=== PATIENT | male | born 1945 | race Caucasian/White ===

== ENCOUNTER 2017-03-03 16:08 | Observation (INO) | payer MEDICARE, OTHER ==
[~2017-03-03] VITALS: Ht 180.3 cm; Wt 77.6 kg
[2017-03-03 16:09] VITALS: BP 158/72
[2017-03-03 16:56] LABS: LYMPH % 4.9 % (10-50)
[2017-03-03 17:05] LABS: BUN 38 mg/dL (7-18)
[2017-03-03 17:08] LABS: GFR (ESTIMATED) 60 ML/MIN (>60)
[2017-03-03 17:26] LABS: NEUTROPHILS 91 % (42-76)
--- NOTE | 2017-03-03 17:29 | Emergency Room Report ---
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 N Clinical Suspician of Infection? N Mental Status: 1 - Regular (Normal Baseline) Sepsis Risk:Low Sepsis Risk Have you (or family members/close friends) recently traveled outside the [place]? N If Yes, where/when: Have you had exposure to infectious disease within the past month? N TB? Other? Specify: Patient states she's had chest tightness on and off for the past several days to a week he states she's been having some shortness of breath on exertion today he states today at [facility] he had a near syncopal event got very lightheaded felt like he may pass out was diaphoretic he states he felt short of breath he states that he didn't really know if he had chest discomfort are not but that he was very discussed lightheaded at that time and near syncopal. He also states that he's been having heart palpitations and fluttering on and off over the past several days. He denies any chest discomfort currently when he has his chest discomfort it's in the LEFT side of the chest moderate no radiation. No fever chills or cough ALLERGIES Coded Allergies: No Known Allergies (03/03/17) History Medical History General CAD? No Angina: No [place]: No Hypertension? Yes Hyperlipidemia? Yes CHF? No DVT? No PE? No COPD? No Asthma? No Anemia? No GERD? No Gastric ulcers? No GI Bleed? No Hernia? Yes Thyroid Problems? No Hypothyroidism? No CVA? No Seizures? No Diabetes? No Renal Insuffiency? No End Stage Renal Disease? No UTI? No Stones? No BPH? No GB Disease: No Nephritic Syndrome? No Asplenia? No Hepatitis? No Sickle Cell Disease? No Arthritis? No Migraines? No Cataracts? No Glaucoma? No MRSA? No HIV? No TB? No Anxiety? No Depression? No Cancer? No More? No Immunization Hx DT/Tetanus 5-10 YRS Flu LAST YEAR Pneumonia 1-4 YRS Surgical Hx Previous Surgery?Y DOUBLE HERNIA TONSIL VASCECTOMY LESION R EAR Family History Family Hx Diabetes Yes CAD Yes Hypertension Yes Hyperlipidemia Yes Cancer No TB No Social History Smoking Hx Smoker: Never Smoker Tobacco: No Alcohol Alcohol: No Review of Systems All Other Systems Reviewed and Negative Physical Exam Vital Signs Vital Signs Date Time Temp Pulse Resp B/P Pulse O2 O2 Flow FiO2 Ox Delivery Rate 03/03 1828 64 16 162/72 95 03/03 1740 74 16 158/71 98 03/03 1701 73 16 147/59 98 03/03 1609 98.6 66 16 158/72 98 General Appearance: Nontoxic Head: Normocephalic, without obvious abnormality, atraumatic. Eyes: conjunctiva/corneas clear ENT: Mucous membranes moist. Neck: No jugular venous distention. Cardiac: regular rate and rhythm Lungs: Clear to auscultation bilaterally Abdomen: Nontender, Nondistended, positive bowel sounds, no rebound : No CVA tenderness Extremities: no edema Musculoskeletal: No chest wall tenderness No Homans sign No calf tenderness No swelling in legs Skin: No rashes or lesions to exposed skin. Neurologic: Alert. Alert and oriented x3 Cranial nerves intact Strength 5 out of 5 Sensation intact to light touch Psychiatric: Normal affect (Osman SINGER, Marvin) General Appearance normal appearance Respiratory Status No: respiratory distress. Cardiovascular normal exam Neurologic alert Medical Decision Making LABS/Meds/Orders Pt receiving controlled substance in ED? No Results/Orders Laboratory Tests 03/03/17 1418: Sodium 138, Potassium 4.3, Chloride 101, Carbon Dioxide 26, BUN 38 H, Creatinine 1.2, Estimated Creat Clear 60, Estimated GFR (MDRD) 60, Glucose 141 H, Calcium 9.0, Total Bilirubin 0.8, AST 27, ALT 28, Alkaline Phosphatase 64, Creatine Kinase 244, CK-MB (CK-2) Rel Index 0.8, CK and CKMB Interp 1.9, Troponin I < 0.02, Total Protein 6.9, Albumin 3.8, Globulin 3.1, Albumin/ Globulin Ratio 1.2, WBC 20.5 *H, RBC 4.13 L, Hgb 14.0 L, Hct 40.8 L, MCV 98.9 H, RDW 13.5, Plt Count 280, MPV 6.4 L, Gran % 91.6 H, Gran # 18.8 H, Total Counted 100, Lymphocytes % 4.9 L, Monocytes % 2.9, Eosinophils % 0.5, Basophils % 0.0 L, Neutrophils 91 H, Lymphocytes (Manual) 9 L, Lymphocytes # 1.0, Monocytes # 0.6, Eosinophils # 0.1, Basophils # 0.0, RBC/WBC/PLT Morphology NORMAL, Platelet Estimate NORMAL, PUBS MCHC 34.3, MCH 33.9 H Current Medication Orders Sig/Sherry Start time Last Medication Dose Route Stop Time Status Admin Multi-Ingredient GI 60 ML ONCE ONE 03/03 1715 DC 03/03 Drug PO 03/03 1716 1710 Multi-Ingredient GI 0 .STK-MED ONE 03/03 1704 DC Drug PO Sodium Chloride 10 ML PRN PRN 03/03 1615 AC IV 03/04 1613 Orders Procedure Date/time Status DIET-NOTHING BY MOUTH 03/03 D Active ELECTROCARDIOGRAM REQUEST 03/[address] HEAD REQ 03/03 161 Complete CHEST(2 VIEWS-NOT PORTABLE) 03/03 161 Active IV SALINE LOCK 03/03 161 Active CBC WITH AUTO DIFF 03/03 161 Complete CARDIAC ENZYMES 03/03 1613 Complete CHEM 12 PROFILE 03/03 1613 Complete DIFFERENTIAL-WBC 03/03 1418 Complete 12 LEAD EKG-BESSON (INITIAL) 03/[address] HEAD W/O CONTRAST 03/03 UNK 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
--- NOTE | 2017-03-03 17:29 | Emergency Room Report ---
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 N Clinical Suspician of Infection? N Mental Status: 1 - Regular (Normal Baseline) Sepsis Risk:Low Sepsis Risk Have you (or family members/close friends) recently traveled outside the [place]? N If Yes, where/when: Have you had exposure to infectious disease within the past month? N TB? Other? Specify: Patient states she's had chest tightness on and off for the past several days to a week he states she's been having some shortness of breath on exertion today he states today at [facility] he had a near syncopal event got very lightheaded felt like he may pass out was diaphoretic he states he felt short of breath he states that he didn't really know if he had chest discomfort are not but that he was very discussed lightheaded at that time and near syncopal. He also states that he's been having heart palpitations and fluttering on and off over the past several days. He denies any chest discomfort currently when he has his chest discomfort it's in the LEFT side of the chest moderate no radiation. No fever chills or cough ALLERGIES Coded Allergies: No Known Allergies (03/03/17) History Medical History General CAD? No Angina: No [place]: No Hypertension? Yes Hyperlipidemia? Yes CHF? No DVT? No PE? No COPD? No Asthma? No Anemia? No GERD? No Gastric ulcers? No GI Bleed? No Hernia? Yes Thyroid Problems? No Hypothyroidism? No CVA? No Seizures? No Diabetes? No Renal Insuffiency? No End Stage Renal Disease? No UTI? No Stones? No BPH? No GB Disease: No Nephritic Syndrome? No Asplenia? No Hepatitis? No Sickle Cell Disease? No Arthritis? No Migraines? No Cataracts? No Glaucoma? No MRSA? No HIV? No TB? No Anxiety? No Depression? No Cancer? No More? No Immunization Hx DT/Tetanus 5-10 YRS Flu LAST YEAR Pneumonia 1-4 YRS Surgical Hx Previous Surgery?Y DOUBLE HERNIA TONSIL VASCECTOMY LESION R EAR Family History Family Hx Diabetes Yes CAD Yes Hypertension Yes Hyperlipidemia Yes Cancer No TB No Social History Smoking Hx Smoker: Never Smoker Tobacco: No Alcohol Alcohol: No Review of Systems All Other Systems Reviewed and Negative Physical Exam Vital Signs Vital Signs Date Time Temp Pulse Resp B/P Pulse O2 O2 Flow FiO2 Ox Delivery Rate 03/03 1828 64 16 162/72 95 03/03 1740 74 16 158/71 98 03/03 1701 73 16 147/59 98 03/03 1609 98.6 66 16 158/72 98 General Appearance: Nontoxic Head: Normocephalic, without obvious abnormality, atraumatic. Eyes: conjunctiva/corneas clear ENT: Mucous membranes moist. Neck: No jugular venous distention. Cardiac: regular rate and rhythm Lungs: Clear to auscultation bilaterally Abdomen: Nontender, Nondistended, positive bowel sounds, no rebound : No CVA tenderness Extremities: no edema Musculoskeletal: No chest wall tenderness No Homans sign No calf tenderness No swelling in legs Skin: No rashes or lesions to exposed skin. Neurologic: Alert. Alert and oriented x3 Cranial nerves intact Strength 5 out of 5 Sensation intact to light touch Psychiatric: Normal affect (Osman SINGER, Marvin) General Appearance normal appearance Respiratory Status No: respiratory distress. Cardiovascular normal exam Neurologic alert Medical Decision Making LABS/Meds/Orders Pt receiving controlled substance in ED? No Results/Orders Laboratory Tests 03/03/17 1418: Sodium 138, Potassium 4.3, Chloride 101, Carbon Dioxide 26, BUN 38 H, Creatinine 1.2, Estimated Creat Clear 60, Estimated GFR (MDRD) 60, Glucose 141 H, Calcium 9.0, Total Bilirubin 0.8, AST 27, ALT 28, Alkaline Phosphatase 64, Creatine Kinase 244, CK-MB (CK-2) Rel Index 0.8, CK and CKMB Interp 1.9, Troponin I < 0.02, Total Protein 6.9, Albumin 3.8, Globulin 3.1, Albumin/ Globulin Ratio 1.2, WBC 20.5 *H, RBC 4.13 L, Hgb 14.0 L, Hct 40.8 L, MCV 98.9 H, RDW 13.5, Plt Count 280, MPV 6.4 L, Gran % 91.6 H, Gran # 18.8 H, Total Counted 100, Lymphocytes % 4.9 L, Monocytes % 2.9, Eosinophils % 0.5, Basophils % 0.0 L, Neutrophils 91 H, Lymphocytes (Manual) 9 L, Lymphocytes # 1.0, Monocytes # 0.6, Eosinophils # 0.1, Basophils # 0.0, RBC/WBC/PLT Morphology NORMAL, Platelet Estimate NORMAL, PUBS MCHC 34.3, MCH 33.9 H Current Medication Orders Sig/Sherry Start time Last Medication Dose Route Stop Time Status Admin Multi-Ingredient GI 60 ML ONCE ONE 03/03 1715 DC 03/03 Drug PO 03/03 1716 1710 Multi-Ingredient GI 0 .STK-MED ONE 03/03 1704 DC Drug PO Sodium Chloride 10 ML PRN PRN 03/03 1615 AC IV 03/04 1613 Orders Procedure Date/time Status DIET-NOTHING BY MOUTH 03/03 D Active ELECTROCARDIOGRAM REQUEST 03/[address] HEAD REQ 03/03 161 Complete CHEST(2 VIEWS-NOT PORTABLE) 03/03 161 Active IV SALINE LOCK 03/03 161 Active CBC WITH AUTO DIFF 03/03 161 Complete CARDIAC ENZYMES 03/03 1613 Complete CHEM 12 PROFILE 03/03 1613 Complete DIFFERENTIAL-WBC 03/03 1418 Complete 12 LEAD EKG-BESSON (INITIAL) 03/[address] HEAD W/O CONTRAST 03/03 UNK Active 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
[2017-03-03 21:09] VITALS: BP 148/73
[2017-03-03 21:41] VITALS: BP 148/73
[2017-03-03] MEDS ORDERED: MELOXICAM15 MG PO (21:56)
[2017-03-03] MEDS ORDERED: LOSARTAN POTAS100 MG PO (21:57)
[2017-03-03] MEDS ORDERED: ZOCOR20 MG PO (21:57)
[2017-03-03] MEDS ORDERED: FINASTERIDE5 MG PO (21:58)
--- NOTE | 2017-03-03 23:28 | RADIOLOGY REPORT PS360 ---
CT HEAD W/O CONTRAST HISTORY: Dizziness FEELING FUNNY IN HIS HEAD AND CHEST PAIN ORDERING PHYSICIAN: Shahbaz Fuentes MD PATIENT AGE: H COMPARISON: None TECHNIQUE: Axial images obtained without contrast. Brain and bone windows reviewed. FINDINGS: No midline shift, mass effect, intracranial hemorrhage, hydrocephalus, or extra-axial fluid collection is evident. The calvarium has an unremarkable appearance. No mastoid effusion. The visualized paranasal sinuses are unremarkable. IMPRESSION: Negative CT head without contrast. No acute finding.
--- NOTE | 2017-03-04 | RADIOLOGY REPORT PS360 ---
CHEST(2 VIEWS-NOT PORTABLE) HISTORY: CHEST PAIN ORDERING PHYSICIAN: Marvin Brewer MD PATIENT AGE: 71 years COMPARISON: None available FINDINGS: The cardiomediastinal silhouette and pulmonary vascularity are within normal limits. The lungs are clear without infiltrates, suspicious nodules, or pleural effusions. No acute bony abnormalities. IMPRESSION: Negative chest, no acute finding
[2017-03-04] MEDS ORDERED: DEXAMETHASONE 4M4 MG FT (00:29)
[2017-03-04 03:56] VITALS: BP 105/56
[2017-03-04 05:04] LABS: LYMPH # 1.5 K/mm3 (0.7-4.5); LYMPH % 10.1 % (10-50)
[2017-03-04 07:48] VITALS: BP 126/54
[2017-03-04] MEDS ORDERED: MECLIZINE12.5 MG PO (08:35)
--- NOTE | 2017-03-04 08:39 | ACUTE CARE PROGRESS NOTE (QUA) ---
Progress Notes Subjective Date 03/04/17 Time 0836 Note Patient has done well since admission, no chest pain, wants to go home. Objective Findings Laboratory Tests 03/04/17 0430: Creatine Kinase 104, CK-MB (CK-2) Rel Index 1.2, CK and CKMB Interp 1.2, Troponin I < 0.02 03/04/17 0430: Sodium 139, Potassium 4.5, Chloride 104, Carbon Dioxide 26, BUN 29 H, Creatinine 0.9, Estimated Creat Clear 81, Estimated GFR (MDRD) 83, Glucose 120 H, Calcium 8.9, WBC 14.5 H, RBC 3.95 L, Hgb 13.0 L, Hct 38.9 L, MCV 98.3 H, RDW 13.3, Plt Count 230, MPV 6.5 L, Gran % 86.5 H, Gran # 12.5 H, Lymphocytes % 10.1, Monocytes % 3.3, Eosinophils % 0.0 L, Basophils % 0.0 L, Lymphocytes # 1.5, Monocytes # 0.5, Eosinophils # 0.0, Basophils # 0.0, PUBS MCHC 33.4, MCH 32.8 H 03/03/17 2209: Creatine Kinase 158, CK-MB (CK-2) Rel Index 1.0, CK and CKMB Interp 1.6, Troponin I < 0.02 03/03/17 1418: Sodium 138, Potassium 4.3, Chloride 101, Carbon Dioxide 26, BUN 38 H, Creatinine 1.2, Estimated Creat Clear 60, Estimated GFR (MDRD) 60, Glucose 141 H, Calcium 9.0, Total Bilirubin 0.8, AST 27, ALT 28, Alkaline Phosphatase 64, Creatine Kinase 244, CK-MB (CK-2) Rel Index 0.8, CK and CKMB Interp 1.9, Troponin I < 0.02, Total Protein 6.9, Albumin 3.8, Globulin 3.1, Albumin/ Globulin Ratio 1.2, WBC 20.5 *H, RBC 4.13 L, Hgb 14.0 L, Hct 40.8 L, MCV 98.9 H, RDW 13.5, Plt Count 280, MPV 6.4 L, Gran % 91.6 H, Gran # 18.8 H, Total Counted 100, Lymphocytes % 4.9 L, Monocytes % 2.9, Eosinophils % 0.5, Basophils % 0.0 L, Neutrophils 91 H, Lymphocytes (Manual) 9 L, Lymphocytes # 1.0, Monocytes # 0.6, Eosinophils # 0.1, Basophils # 0.0, RBC/WBC/PLT Morphology NORMAL, Platelet Estimate NORMAL, PUBS MCHC 34.3, MCH 33.9 H Vital Signs Date Time Temp Pulse Resp B/P Pulse O2 O2 Flow FiO2 Ox Delivery Rate 03/04 0748 98.1 56 20 126/54 96 ROOM AIR 03/04 0356 98.4 53 18 105/56 96 ROOM AIR 03/03 2154 2 03/03 2154 2 03/03 2154 99 ROOM AIR 03/03 2154 99 ROOM AIR 03/03 2141 58 03/03 2141 97.7 58 18 148/73 03/03 2141 95 ROOM AIR 03/03 2109 97.7 58 18 148/73 95 ROOM AIR 03/03 1945 98.6 59 16 145/71 96 03/03 1936 59 16 145/71 96 03/03 1859 67 16 169/75 97 03/03 1828 64 16 162/72 95 03/03 1740 74 16 158/71 98 03/03 1701 73 16 147/59 98 03/03 1609 98.6 66 16 158/72 98 Last VS-Temp:98.1 B/P:126/54 Pulse:56 Resp:20 SaO2:96 ROOM AIR Last weight lbs:171 oz:0 K.565 Method:Bed Scales Exam General appearance: alert, awake, no acute distress Cardiovascular: regular rate & rhythm, no murmur Respiratory: clear to auscultation Neuro: some nystagmus with [place] Assessment/Plan Problem List 1. Chest pain 2. Labyrinthitis This inpt stay is expected to cross 2 MNs from start of care No Comments: Discharge home today, f/u in office in 2 days, treat with Meclizine. at 0838
--- NOTE | 2017-03-04 08:40 | Discharge Summary Standard ---
HP/DC combined ([facility]CA) Date of admission: 03/03/17 Chief complaint: dizziness, CP History: History of Present Illness: Mr. Dougherty is a 71yo male who was just recently seen in the office of [facility] on 02/27/17 with episodes of chest pain, shortness of breath, and dizziness. He states he has been lightheaded on and off ever since he returned home from [place]. He states the room does not spin but he does feel off balance. He was seen in the office and had a chest x-ray done that was normal. His oxygen and blood pressure were all normal as well. He was started on some steroids for possible costochondritis. He states the chest pain resolved however the dizziness continued. He had numerous episodes of dizziness yesterday and therefore decided to present to the emergency room for evaluation. Of note he has recently had an abscessed tooth that infected his sinus cavity. He has also had hiccups. This a.m. he states he feels fine except for some dizziness. He is anxious to go home. Past Medical History: Medical History: CAD? No Angina: No [place]: No Hypertension? Yes Hyperlipidemia? Yes CHF? No DVT? No PE? No COPD? No Asthma? No Anemia? No GERD? No Gastric ulcers? No GI Bleed? No Hernia? Yes Thyroid Problems? No Hypothyroidism? No CVA? No Seizures? No Diabetes? No Renal Insuffiency? No UTI? No Stones? No BPH? No GB Disease: No Nephritic Syndrome? No Asplenia? No Hepatitis? No Sickle Cell Disease? No Arthritis? No Migraines? No Cataracts? No Glaucoma? No MRSA? No HIV? No TB? No Anxiety? No Depression? No Cancer? No More? No Additional hx: 1. Polycythemia 2. Enlarged prostate 3. Hemochromatosis 4. Irregular heart beat 5. Impaired fasting glucose Surgical history: Previous Surgery?Y DOUBLE HERNIA TONSILS VASCECTOMY LESION R EAR TOOTH EXTRACTION (FEBRUARY 2017) BONE GRAFT (FEBRUARY 2017) CATARACT REMOVAL Medications: Reported Medications Meloxicam (Meloxicam 15MG) 15 MG PO PRN PRN BACK PAIN Losartan Potassium (Losartan 100MG) 100 MG PO DAILY Simvastatin (Zocor) 20 MG PO DAILY Finasteride 5 MG PO DAILY Discontinued Reported Medications Dexamethasone (Dexamethasone 4MG Tab) 4 MG FT DAILY Allergies: Coded Allergies: No Known Allergies (03/03/17) Family History: Family history: Postive for: CAD, HTN. Additional family history: Alzheimers Social History: Smoking Hx: Tobacco: No Smoker: Never Smoker Type: N/A Packs/day: N/A Are you/the child exposed to second-hand smoke: No Alcohol: Alcohol: No Hx of Drug Use: Drug Use? No Review of Systems: Constitutional No: fatigue, lethargy, malaise, weak. ENT No: nasal congestion, sore throat. Cardiovascular No: chest pain, edema, palpitations. Respiratory Positive for: shortness of air (off and on). No: productive cough (sputum), wheezing. GI No: abdominal pain, diarrhea, nausea, vomitting. (male) No: frequency, hematuria. Neurological Positive for: dizziness, light headed. No: syncope, weakness. Musculoskeletal No: extremity pain, joint pain, myalgias. Vital signs: Vital Signs Result Date Time Pulse Ox 98 03/03 1609 B/P 158/72 03/03 1609 Temp 98.6 03/03 1609 Pulse 66 03/03 1609 Resp 16 03/03 1609 O2 Delivery ROOM AIR 03/03 2109 O2 Flow Rate 2 03/03 2154 Physical Exam: Exam: General appearance: alert, awake, no acute distress Eyes: EOM's w/normal ROM, PERRLA, horizontal nystagmus present ENT: mucous membranes moist, nose normal, pharynx normal Neck: non-tender, no carotid bruit, full range of motion, supple Cardiovascular: regular rate & rhythm Respiratory: clear to auscultation ABD: non-distended, normal bowel sounds, no rebound, soft, no tenderness, no guarding Extremities: no peripheral edema Musculoskeletal: equal muscle strength, motor intact, sensation intact Skin: normal color 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5, Eosinophils # 0.0, Basophils # 0.0, PUBS MCHC 33.4, MCH 32.8 H 03/03/17 2209: Creatine Kinase 158, CK-MB (CK-2) Rel Index 1.0, CK and CKMB Interp 1.6, Troponin I < 0.02 03/03/17 1418: Sodium 138, Potassium 4.3, Chloride 101, Carbon Dioxide 26, BUN 38 H, Creatinine 1.2, Estimated Creat Clear 60, Estimated GFR (MDRD) 60, Glucose 141 H, Calcium 9.0, Total Bilirubin 0.8, AST 27, ALT 28, Alkaline Phosphatase 64, Creatine Kinase 244, CK-MB (CK-2) Rel Index 0.8, CK and CKMB Interp 1.9, Troponin I < 0.02, Total Protein 6.9, Albumin 3.8, Globulin 3.1, Albumin/ Globulin Ratio 1.2, WBC 20.5 *H, RBC 4.13 L, Hgb 14.0 L, Hct 40.8 L, MCV 98.9 H, RDW 13.5, Plt Count 280, MPV 6.4 L, Gran % 91.6 H, Gran # 18.8 H, Total Counted 100, Lymphocytes % 4.9 L, Monocytes % 2.9, Eosinophils % 0.5, Basophils % 0.0 L, Neutrophils 91 H, Lymphocytes (Manual) 9 L, Lymphocytes # 1.0, Monocytes # 0.6, Eosinophils # 0.1, Basophils # 0.0, RBC/WBC/PLT Morphology NORMAL, Platelet Estimate NORMAL, PUBS MCHC 34.3, MCH 33.9 H Radiology results: Results: Head CT - normal CXR - normal Diagnosis(es): 1. Labyrinthitis 2. Chest pain Plan: The patient's chest pain has resolved and all of his heart enzymes are normal. He is stable to be discharged home today on meclizine for the labyrinthitis and will follow-up in the office with Dr. Fuentes on Monday. Discharge medications: Stop taking the following medications: Dexamethasone (Dexamethasone 4MG Tab) 4 MG TABLET FEEDING TUBE DAILY Continue taking these medications: Meloxicam (Meloxicam 15MG) 15 MG TABLET 15 MILLIGRAM ORAL As Needed as needed for BACK PAIN Losartan Potassium (Losartan 100MG) 100 MG TABLET 100 MILLIGRAM ORAL DAILY Simvastatin (Zocor) 20 MG TABLET 20 MILLIGRAM ORAL DAILY Finasteride (Finasteride) 5 MG TABLET 5 MILLIGRAM ORAL DAILY Start taking the following new medications: MECLIZINE HYDROCHLORIDE (Meclizine HCl) 12.5 MG TABLET 12.5 MILLIGRAM ORAL THREE TIMES A DAY NEEDED as needed for dizziness Qty = 30 No Refills Instructions: 1 or 2 tabs Disposition: F/U with: Shahbaz Fuentes MD Follow up: 2 DAYS Activity: Cont Current activity Diet: Continue same diet Discharge to: HOME Agency needed? N at 0831
--- NOTE | 2017-03-04 08:49 | PHARMACY CLINIC NOTE ---
Patient Demographics Patient Demographics Admission date: 03/03/17 Date: 03/04/17 Time: 0849 Allergies Coded Allergies: No Known Allergies (03/03/17) HEIGHT- FT: 5 IN: 11.00 K.565 VTE General Information Labs: Laboratory Tests 03/04 03/03 0430 1418 Hematology Hgb (14.1 - 18.0 g/dL) 13.0 L 14.0 L Hct (42.0 - 52.0 %) 38.9 L 40.8 L Plt Count (142 - 424 K/mm3) 230 280 Disclaimer The following section includes nursing documentation that has been pulled in for pharmacy review. Patient's VTE score: 1 Patient's VTE Risk: VERY LOW RISK Clinical trial participant? No VTE prophylaxis [id number] VTE prophylaxis ordered? Yes Type of prophylaxis/treatment: LIS at 0849
[2017-03-04 09:02] VITALS: BP 133/52; BP 138/60; BP 158/82
[2017-03-04 14:24] VITALS: BP 138/60
== END 2017-03-04 09:11 | disposition home or self-care (01) ==
LOC: ER 16:08 → 2ND 18:50 → ER 18:50 → 2ND 20:01
PROVIDERS: Emergency Medicine
DX: R07.9 Chest pain, unspecified (principal); I10 Essential (primary) hypertension; R42 Dizziness and giddiness; H83.09 Labyrinthitis, unspecified ear
CPT/HCPCS: G0378